=== PATIENT | male | born 1960 | race Asian ===

== ENCOUNTER 2017-04-29 23:40 | Emergency (ER) | payer OTHER ==
[~2017-04-29] VITALS: Ht 167.6 cm; Wt 79.8 kg
[2017-04-30 00:06] VITALS: Ht 167.6 cm; Wt 79.8 kg
[2017-04-30 02:03] LABS: CALCIUM 9.2 mg/dL (8.5-10.1); CARBON DIOXIDE 31.1 mmol/L (21-32); CHLORIDE SERUM 97 mmol/L (98-107); CREATININE SERUM 1.2 mg/dL (0.7-1.3); GFR1 > 60 mL/min; GLUCOSE SERUM 282 mg/dL (74-106); POTASSIUM SERUM 3.2 mmol/L (3.5-5.1); SODIUM SERUM 140 mmol/L (136-145)
[2017-04-30 02:07] LABS: ALBUMIN 3.4 g/dL (3.4-5.0); ALKALINE PHOSPHATASE 92 U/L (46-116); ALT/SGPT 304 U/L (16-63); AST/SGOT 152 U/L (15-37); BILIRUBIN TOTAL 1.05 mg/dL (0.20-1.00); LIPASE 314 IU/L (73-393); TOTAL PROTEIN, SERUM 7.8 g/dL (6.4-8.2)
[2017-04-30 02:08] LABS: BASOPHIL % 3.5 % (0-2); PLATELET COUNT 73 x10^3mcL (130-400)
[2017-04-30 03:56] VITALS: BP 121/72
== END 2017-04-30 03:57 | disposition home or self-care (01) ==
LOC: ED 23:40
PROVIDERS: Emergency Medicine
DX: K52.9 Noninfective gastroenteritis and colitis, unspecified (principal); I10 Essential (primary) hypertension; E11.9 Type 2 diabetes mellitus without complications
CPT/HCPCS: J2405; J7030

== ENCOUNTER 2018-01-24 22:40 | Inpatient (IN) | payer OTHER ==
[~2018-01-24] VITALS: Ht 170.2 cm; Wt 78.9 kg
[2018-01-24 22:47] VITALS: Ht 170.2 cm; Wt 78.9 kg
[2018-01-25 01:02] LABS: BASOPHIL % 0.3 % (0-2); RED CELL DISTRIBUTION WIDTH 14.2 % (11.5-14.5)
[2018-01-25 01:04] LABS: PLATELET COUNT 54 x10^3mcL (130-400)
[2018-01-25 01:12] LABS: CALCIUM 9.1 mg/dL (8.5-10.1); CARBON DIOXIDE 29.7 mmol/L (21-32); CHLORIDE SERUM 100 mmol/L (98-107); CREATININE SERUM 1.2 mg/dL (0.7-1.3); GFR1 > 60 mL/min; GLUCOSE SERUM 192 mg/dL (74-106); POTASSIUM SERUM 3.8 mmol/L (3.5-5.1); SODIUM SERUM 137 mmol/L (136-145)
[2018-01-25 01:17] LABS: ALBUMIN 3.8 g/dL (3.4-5.0); ALKALINE PHOSPHATASE 63 U/L (46-116); ALT/SGPT 42 U/L (16-63); AST/SGOT 32 U/L (15-37); BILIRUBIN TOTAL 0.4 mg/dL (0.20-1.00); TOTAL PROTEIN, SERUM 8.4 g/dL (6.4-8.2)
[2018-01-25] MEDS ORDERED: ACT15 PO (02:35)
[2018-01-25] MEDS ORDERED: METFORMIN HCL1000 MG PO (02:35)
[2018-01-25] MEDS ORDERED: GLIMEPIRIDE2 M1 PO (02:35)
[2018-01-25] MEDS ORDERED: VEMLIDY25 MG PO (02:36)
[2018-01-25] MEDS ORDERED: TOPROL XL25 MG PO (02:36)
[2018-01-25 03:27] VITALS: BP 160/89
[2018-01-25 03:36] LABS: CHOLESTEROL/HDL RATIO 2.9; MAGNESIUM 2.1 mg/dL (1.8-2.4); PHOSPHOROUS 3.5 mg/dL (2.5-4.9)
[2018-01-25 03:45] LABS: T3 TOTAL 1.07 ng/mL
[2018-01-25 03:56] LABS: FREE T4 1.18 ng/dL (0.76-1.46); FREE THYROXINE INDEX 3.2 ug/dL (1.4-4.5); T4(THYROXINE) 9.7 ug/dL (4.7-13.3)
[2018-01-25 05:19] VITALS: BP 145/79
[2018-01-25 08:01] LABS: AMPHETAMINE QUAL UR NONE DETECTED (See below)
[2018-01-25 09:15] VITALS: BP 124/70
[2018-01-25 09:24] LABS: microscopic required? YES; urine erythrocyte TRACE (NEGATIVE)
[2018-01-25 13:00] VITALS: BP 135/78
[2018-01-25 14:08] LABS: BASOPHIL % 0.1 % (0-2); PLATELET COUNT 80 x10^3mcL (130-400)
[2018-01-25 15:06] VITALS: BP 135/78
== END 2018-01-25 16:05 | disposition home or self-care (01) | DRG 810 ==
LOC: ED 22:40 → DU 01-25 02:17
PROVIDERS: Emergency Medicine; Family Medicine
PROC: 30233R1 Transfusion of Nonautologous Platelets into Peripheral Vein, Percutaneous Approach (ICD-10-PCS; principal; 2018-01-25)
DX: K91.840 Postprocedural hemorrhage of a digestive system organ or structure following a digestive system procedure (principal); N17.0 Acute kidney failure with tubular necrosis; D69.6 Thrombocytopenia, unspecified; E11.9 Type 2 diabetes mellitus without complications; D64.9 Anemia, unspecified; B18.1 Chronic viral hepatitis B without delta-agent; I10 Essential (primary) hypertension; Z68.27 Body mass index [BMI] 27.0-27.9, adult; Z79.84 Long term (current) use of oral hypoglycemic drugs; Y83.9 Surgical procedure, unspecified as the cause of abnormal reaction of the patient, or of later complication, without mention of misadventure at the time of the procedure
CPT/HCPCS: 82962; 83880; 84439; J7030; J7040; J7050; P9035; Q0092; Q0163

== ENCOUNTER 2018-12-27 14:15 | Emergency (ER) | payer OTHER ==
[~2018-12-27] VITALS: Ht 167.6 cm; Wt 69.4 kg
[~2018-12-27 14:15] MED LIST: ACT15 PO; GLIMEPIRIDE2 M1 PO; METFORMIN HCL1000 MG PO; TOPROL XL25 MG PO; VEMLIDY25 MG PO
[2018-12-27 14:18] VITALS: Ht 167.6 cm; Wt 69.4 kg
[2018-12-27 17:21] VITALS: BP 168/71
== END 2018-12-27 17:21 | disposition home or self-care (01) ==
LOC: ED 14:15
DX: J04.0 Acute laryngitis (principal); J20.9 Acute bronchitis, unspecified; I10 Essential (primary) hypertension; E11.9 Type 2 diabetes mellitus without complications